=== PATIENT | male | born 1950 | race Caucasian/White ===

== ENCOUNTER 2019-01-19 12:22 | Emergency (ER) | payer OTHER ==
[~2019-01-19] VITALS: Ht 180.3 cm; Wt 113.4 kg
[~2019-01-19 12:22] MED LIST: ACETAMINOPHEN325 M1 PO; ADULT LOW DOSE81 MG PO; ALLOPURINOL 10100 M1 PO; ALTOPREV20 MG PO; ASPIRIN BUFFER325 MG PO; ASPIRIN300 MG RE; ASPIRIN325 OR; ATIVAN1 MG PO; BENICAR HCT 401 EACH PO; BENICAR20 MG PO; BENICAR40 MG PO; BISACODYL SUPP10 MG RE; CARDURA XL4 MG PO; COLACE 100 MG100 MG PO; COUMADIN 5 MG TA5 M1 PO; DEX4 GLUCOSE1 EACH PO; DEXTROSE IV; DILTIAZEM 24HR240 MG PO; DILTIAZEM ER180 M1 PO; DILTIAZEM ER240 M1 PO; FAMOTIDINE20 MG PO; FISH OIL 1,0001 EAC5 PO; FOLIC ACID1 MG PO; GARLIC OIL1 EACH PO; GLUCOSAMINE &1 EAC1 PO; GLUCOSE 40% GEL15 GM PO; HYDROXYZINE HCL50 MG PO; K-DUR10 MEQ PO; MAG-OX 400 TAB400 M1 PO; METFORMIN 500500 MG PO; MOM PO; NIASPAN 500 MG500 M1 PO; NORCO 5-325 TA1 EACH PO; NOVOLOG100 UNIT/1 SQ; ODORLESS GARLI500 MG PO; ONE-A-DAY WOMENS; POTASSIUM GLUCO99 MG PO; SENOKOT-S1 TA1 PO; UNICOMPLEX M TA1 TA1 PO; VITAMIN B-1100 MG PO; VITAMIN D 11000 UNIT PO; VITAMIN D1000 UNI1 PO; [UNRECOGNIZED DRUG - OTHER] IV
[2019-01-19] MEDS ORDERED: ELIQUIS2.5 MG PO (12:32)
[2019-01-19] MEDS ORDERED: MOBIC7.5 MG PO (12:45)
[2019-01-19 13:06] VITALS: BP 196/94
== END 2019-01-19 13:06 | disposition home or self-care (01) ==
LOC: ER 12:22
DX: M13.862 Other specified arthritis, left knee (principal)

== ENCOUNTER 2021-06-05 16:15 | Inpatient (IN) | payer OTHER ==
[~2021-06-05] VITALS: Ht 180.3 cm; Wt 117.9 kg
[~2021-06-05 16:15] MED LIST changes: +ELIQUIS2.5 MG PO; +MOBIC7.5 MG PO
[2021-06-05 16:29] VITALS: BP 128/62
[2021-06-05 16:48] LABS: URINE BILIRUBIN NEGATIVE (Negative); URINE BLOOD 3+ (Negative); URINE CLARITY SL CLOUDY; URINE COLOR YELLOW; URINE GLUCOSE-RANDOM* NEGATIVE (Negative); URINE KETONES NEGATIVE (Negative); URINE NITRITE-REFLEX NEGATIVE (Negative); URINE PROTEIN (DIPSTICK) 1+ (Negative); URINE UROBILINOGEN 0.2 E.U./dl (0.2-1.0)
[2021-06-05 16:51] LABS: URINE LEUKOCYTES-REFLEX 1+ (Negative)
[2021-06-05 17:44] LABS: ABSOLUTE NEUTROPHILS 11.7 thou/uL (1.4-8.2); BASOPHILS 0.5 % (0.0-2.0); EOSINOPHILS 0.1 % (0.0-3.0); HEMATOCRIT 41.8 % (42.0-52.0); HEMOGLOBIN 13.5 gm/dL (14.0-18.0); LYMPHOCYTES 23.4 % (24.0-44.0); MCH 29.9 pg (26.0-34.0); MCHC 32.2 g/dL (28.0-37.0); MCV 92.9 fL (80.0-100.0); MONOCYTES 2.5 % (1.0-8.0); PLATELET COUNT 153 thou/uL (150-400); POLYS 73.5 % (36.0-66.0); RBC 4.51 mil/uL (4.50-6.00); RDW 15.1 % (10.5-14.5); WBC 15.9 thou/uL (4.0-11.0)
[2021-06-05 18:02] LABS: SQUAMOUS 0-3 Few /LPF (0-3); URINE RBC 3-10 Few /HPF (NONE SEEN); URINE WBC-REFLEX 0-5 Rare /HPF (0-5)
[2021-06-05 18:03] LABS: CRYSTALS None Seen /LPF (None Seen)
[2021-06-05 18:03] LABS: CALCIUM 8.4 mg/dL (8.5-10.1); CREATININE 7.5 mg/dL (0.7-1.3); POTASSIUM 4.9 mmol/L (3.5-5.1)
[2021-06-05 18:06] LABS: APTT 33.1 Seconds (24.5-32.8); INR 1.36; PROTIME 14.6 Seconds (10.5-12.1)
[2021-06-05 18:18] LABS: ALBUMIN 3.2 g/dL (3.4-5.0); DIRECT BILIRUBIN 0.3 mg/dL (<0.1-0.2); MAGNESIUM 1.9 mg/dL (1.8-2.4); TOTAL BILIRUBIN 0.8 mg/dL (0.2-1.0); TOTAL PROTEIN 6.8 g/dL (6.4-8.2)
[2021-06-05] MEDS ORDERED: AMLODIPINE BESY10 MG PO (19:57)
[2021-06-05] MEDS ORDERED: ALLOPURINOL 30300 M1 PO (19:57)
[2021-06-05] MEDS ORDERED: LIPITOR 40 MG T40 M1 PO (19:57)
[2021-06-05] MEDS ORDERED: CHLORTHALIDONE25 MG PO (19:58)
--- NOTE | 2021-06-06 07:27 | EKG ---
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 : 1950 Requested By: Diogo Stoll Order Number: [id number] MD: Mike Vega Measurements Intervals [place] Rate: 81 P: 71 MN: 156 QRS: 60 QRSD: 122 T: -5 QT: 389 QTc: 452 Interpretive Statements Sinus rhythm Probable left atrial enlargement Nonspecific intraventricular conduction delay Borderline T abnormalities, inferior leads Compared to ECG 03/18/2012 09:00:46 Intraventricular conduction delay now present T-wave abnormality now present ST (T wave) deviation now present Sinus bradycardia no longer present Electronically Signed On 06-06-2021 7:27:03 CERTIFIED PROFESSIONAL MIDWIFE by Mike Vega [email or web address] <ELECTRONICALLY SIGNED> By: Mike Vega MD, FACC 06/06/21 0727 20 20 Mike Vega MD, [facility] /EPI
[2021-06-06 08:01] VITALS: BP 126/70
[2021-06-06 08:03] LABS: ALBUMIN 2.9 g/dL (3.4-5.0); CALCIUM 8.3 mg/dL (8.5-10.1); CREATININE 7.9 mg/dL (0.7-1.3); PHOSPHORUS 4.9 mg/dL (2.6-4.7); POTASSIUM 5.2 mmol/L (3.5-5.1)
[2021-06-06 11:51] VITALS: BP 133/66
--- NOTE | 2021-06-06 11:52 | NUR ---
MEDS ADMIN PER EMAR, PT UP TO BEDSIDE COMMODE. PT HAS REMOVED ALL MONITORING AT THIS TIME. ONCE PT IS THROUGH ON BEDSIDE COMMODE PT WILL BE PLACED BACK ON MONITORING
--- NOTE | 2021-06-06 14:45 | NUR ---
SHEET LAYER REPORTED THAT PATIENT WAS DRESSED AND WALKED OFF UNIT TOWARDS EAST EXIT. TECH STATES THAT PATIENT STATED HE WAS LEAVING AND DID NOT WANT TO BE IN HOSPITAL ANY LONGER. PATIENT WAS FOUND IN MEDICAL MALL BY ELEVATORS, INSTRUCTED TO RETURN TO ER AND WOULD NEED TO SIGN AMA PAPERWORK IF HE WANTED TO LEAVE. DR. ZAPATA CALLED AND NOTIFIED OF PATIENT STATEMENTS AND ACTIONS.
[2021-06-07 08:52] LABS: HAV IgM AB (ANTI-HAV IgM) Negative (Negative); HEPATITIS B SURFACE AG Negative (Negative)
[2021-06-08 13:08] LABS: MITOCHONDRIAL ANTIBODY <20.0 Units (0.0-20.0)
[2021-06-08 14:04] LABS: HEPATITIS C VIRUS AB <0.1
[2021-06-08 15:08] LABS: SMOOTH MUSCLE ANTIBODY 7 Units (0-19)
== END 2021-06-06 16:22 | disposition left against medical advice (07) | DRG 682 ==
LOC: ER 16:15 → EROBS 19:58
PROVIDERS: Emergency Medicine; Internal Medicine Gastroenterology; Internal Medicine Nephrology; Nurse Practitioner; ADMIT Internal Medicine; ATTEND Internal Medicine
DX: N17.9 Acute kidney failure, unspecified (principal); J18.9 Pneumonia, unspecified organism; I21.A1 Myocardial infarction type 2; N39.0 Urinary tract infection, site not specified; M62.82 Rhabdomyolysis; E87.2 Acidosis; R19.7 Diarrhea, unspecified; F10.20 Alcohol dependence, uncomplicated; R77.8 Other specified abnormalities of plasma proteins; M19.90 Unspecified osteoarthritis, unspecified site; R74.01 Elevation of levels of liver transaminase levels; E66.9 Obesity, unspecified; I12.9 Hypertensive chronic kidney disease with stage 1 through stage 4 chronic kidney disease, or unspecified chronic kidney disease; N18.9 Chronic kidney disease, unspecified; Y90.0 Blood alcohol level of less than 20 mg/100 ml; S01.81XA Laceration without foreign body of other part of head, initial encounter; E87.5 Hyperkalemia; S80.211A Abrasion, right knee, initial encounter; W18.30XA Fall on same level, unspecified, initial encounter; E78.5 Hyperlipidemia, unspecified; N40.0 Benign prostatic hyperplasia without lower urinary tract symptoms; I95.9 Hypotension, unspecified; I48.0 Paroxysmal atrial fibrillation; Z53.29 Procedure and treatment not carried out because of patient's decision for other reasons; E78.00 Pure hypercholesterolemia, unspecified; Z20.822 Contact with and (suspected) exposure to COVID-19; Z86.73 Personal history of transient ischemic attack (TIA), and cerebral infarction without residual deficits; Z91.81 History of falling; Z79.01 Long term (current) use of anticoagulants; Z79.899 Other long term (current) drug therapy; Z87.891 Personal history of nicotine dependence; Z71.41 Alcohol abuse counseling and surveillance of alcoholic; Y93.89 Activity, other specified; Y92.89 Other specified places as the place of occurrence of the external cause; Y99.8 Other external cause status; Z68.36 Body mass index [BMI] 36.0-36.9, adult